=== PATIENT | male | born 1960 | race African-American/Black ===

== ENCOUNTER 2020-08-03 09:14 | Emergency (ER) | payer MEDICARE, MEDICAID, SELFPAY ==
[2020-08-03 09:23] VITALS: BP 154/77; PULSE 80; RESP 16; TEMP 36.4; O2SAT 99; BMI 27.8
--- NOTE | 2020-08-03 09:26 | ED.DENTAL ---
HPI - Dental/Oral General Chief complaint: Dental/Oral Stated complaint: dental pain Time Seen by Provider: 08/03/20 09:25 Source: patient Mode of arrival: ambulatory Limitations: no limitations History of Present Illness HPI Narrative: left and right molar pain. Patient went to the dentist who refused to remove his teeth because his pressure was high. Here his BP was 154 systolic MD Complaint: tooth pain Onset (ago): month(s) Duration: intermittent Severity: moderate Associated symptoms: gum swelling Related Data Previous Rx's Medication Instructions Recorded amoxicillin 875 mg PO BID #14 tab 08/03/20 metformin 500 mg PO BID #20 tab 08/03/20 Allergies Allergy/AdvReac Type Severity Reaction Status Date / Time No Known Allergies Allergy Unverified 03/24/20 18:07 Review of Systems Constitutional: Constitutional: Reports no additional constitutional complaints Eyes: Eyes: Reports no additional eye complaints ENT: Denies dizziness Cardiovascular: Cardiovascular: Reports no additional cardiovascular complaints Respiratory: Respiratory: Reports as per HPI Gastrointestinal: Gastrointestinal: Reports no additional gastrointestinal complaints Musculoskeletal: Musculoskeletal: Reports no additional musculoskeletal complaints Integumentary/Breasts: Skin/Breast: Denies rash Neurologic: Reports system reviewed and no additional complaints, except as documented, Denies dizziness and Denies Sensory deficit (Neuro) Psychiatric: Psychiatric: Denies anxiety [facility] Past Medical History Medical History Arthritis Diabetes Social History Social History Smoking Status: Current some day smoker Smoked in Last 30 Days: Yes Use of substances other than those prescribed or required for medical reasons: No Any prior treatment program specific to substance use: Yes ([facility]) Physical Exam Vital Signs: Vital Signs: Last Vital Signs Temp 97.5 F 08/03/20 09:23 Pulse 80 08/03/20 09:23 Resp 16 08/03/20 09:23 BP 154/77 H 08/03/20 09:23 Pulse Ox 99 08/03/20 09:23 Body Mass Index 27.8 Const: General: healthy appearing Nutritional Appearance: average body habitus Orientation/consciousness: oriented to person and patient oriented x3 Limitations: no limitations HENMT: Head: Yes normal to inspection Ears: external ears normal General nose exam: Normal external nose present Mouth: Normal oral and palatal mucosa present and oropharynx normal Teeth and gingiva: poor dentition and other (multiple dental caries with gingivitis) Throat: Yes posterior oropharynx normal Eyes: General: appearance normal, both eyes and all related structures Neck: Other: supple Neck: Yes normal visual inspection Chest: Chest palpation & inspection: normal inspection of the chest Resp: Auscultation: clear to auscultation bilaterally Cardio: Jugular venous distension: no JVD Rate: regular rate Rhythm: regular rhythm Heart sounds: S1 normal heart sound present and S2 normal heart sound present GI: Inspection: Yes normal to inspection Palpation (GI): Soft to palpation, nontender and No hepatosplenomegaly present Auscultation: normal bowel sounds : General: Yes no CVA tenderness Back/Spine/Pelvis: Back: no CVA tenderness Skin: General skin exam: no rashes or lesions noted Neuro: General: oriented to person and patient oriented x3 Cranial nerves: Yes CN's II-XII intact bilaterally Motor exam (neuro): 5/5 motor strength present throughout Sensory Exam: No Sensory deficit (Neuro) Extrem: General: Yes normal to inspection Psych: Appearance: grossly normal Course Course Course Narrative: will give amoxicillin and metformin MDM - Dental/Oral Lab Data Labs: Lab Results 08/03/20 Range/Units 09:35 POC Glucose 388 H* (60-115) mg/dL Discharge Plan Discharge Clinical Impression: Toothache, Dental caries Patient Disposition: Home, Self-Care Instructions: Toothache (ED), Diabetes and Nutrition (ED) Prescriptions: New amoxicillin 875 mg tablet 875 mg PO BID Qty: 14 RF: 0 metformin 500 mg tablet 500 mg PO BID Qty: 20 RF: 0 Referrals: Physician,Unknown [Primary Care Provider] - 2 days
[2020-08-03 09:42] LABS: Glucose, Whole Blood 388 mg/dL (60-115)
--- NOTE | 2020-08-03 09:50 | PC.NURSE ---
pt also reports not taking metformin r/t no pcp
[2020-08-03] MEDS: metFORMIN HCl 1,000 MG TABLET 1000 MG PO (09:53)
== END 2020-08-03 10:01 | disposition home or self-care (01) ==
LOC: HO.ED 09:45
PROVIDERS: Emergency Provider Emergency Medicine
DX: K02.9 Dental caries, unspecified (principal); F17.200 Nicotine dependence, unspecified, uncomplicated; Z71.6 Tobacco abuse counseling; Z79.899 Other long term (current) drug therapy
CPT/HCPCS: 82947; 99283; 99284